=== PATIENT | female | born 2000 | race Caucasian/White ===

== ENCOUNTER 2021-04-29 02:10 | Inpatient (IN) | payer SELFPAY ==
[2021-04-29 03:09] LABS: RBC,Urine < 1.0 /HPF (0.0-6.0); WBC,Urine < 1.0 /HPF (0.0-6.0)
[2021-04-29 03:10] LABS: Color,Urine Colorless (Yellow)
[2021-04-29 03:11] LABS: PH,Urine 6.5 (5.0-7.0); Protein,Urine <15 mg/dL mg/dL (Negative); Urobilinogen,Urine < 2.0 mg/dL (<2.0)
--- NOTE | 2021-04-29 07:55 | Ultrasound Report ---
ULTRASOUND OBSTETRIC LIMITED ULTRASOUND BIOPHYSICAL PROFILE INDICATION / CLINICAL INFORMATION: BPP FABIAN EFW. Clinical Gestational Age (GA): 39.6 weeks.days COMPARISON: None available. FINDINGS: BREATHING MOVEMENT = 2 GROSS BODY MOVEMENT = 2 TONE = 2 QUALITATIVE AMNIOTIC FLUID VOLUME = 2 TOTAL BIOPHYSICAL SCORE = 8/8 HEART RATE (beats per minute): 131 AMNIOTIC FLUID INDEX (cm) = 10.6 (normal = 7-24 cm) PRESENTATION: Cephalic. ADDITIONAL FINDINGS: The estimated sonographic gestational age is 39 weeks 5 days with an EDC of 04/08 06/28. The estimated weight is 4058 +/- 601 g IMPRESSION: 1. Biophysical Score = 8/8 2. FABIAN 10.6 cm. 3. EFW 4058 +/- 601 g Signer Name: Michael Celis MD Signed: 04/29/2021 7:50 AM Workstation Name: [id number]
--- NOTE | 2021-04-29 07:55 | Ultrasound Report ---
ULTRASOUND OBSTETRIC LIMITED ULTRASOUND BIOPHYSICAL PROFILE INDICATION / CLINICAL INFORMATION: BPP AFBIAN EFW. Clinical Gestational Age (GA): 39.6 weeks.days COMPARISON: None available. FINDINGS: BREATHING MOVEMENT = 2 GROSS BODY MOVEMENT = 2 TONE = 2 QUALITATIVE AMNIOTIC FLUID VOLUME = 2 TOTAL BIOPHYSICAL SCORE = 8/8 HEART RATE (beats per minute): 131 AMNIOTIC FLUID INDEX (cm) = 10.6 (normal = 7-24 cm) PRESENTATION: Cephalic. ADDITIONAL FINDINGS: The estimated sonographic gestational age is 39 weeks 5 days with an EDC of 04/08 06/28. The estimated weight is 4058 +/- 601 g IMPRESSION: 1. Biophysical Score = 8/8 2. FABIAN 10.6 cm. 3. EFW 4058 +/- 601 g Signer Name: Michael Celis MD Signed: 04/29/2021 7:50 AM Workstation Name: [id number]
[2021-04-29] MEDS ORDERED: LACTATED RINGERS 1,000 ML ONE (10:31)
[2021-04-29] MEDS ORDERED: LACTATED RINGERS 1,000 ML IV SCH (11:30)
[2021-04-29 11:45] LABS: Basophils % (Auto) 0.2 % (0.0-1.8); Eosinophils # (Auto) 0.1 K/mm3 (0.0-0.4); Eosinophils % (Auto) 0.8 % (0.0-4.3); Hematocrit 40.5 % (30.3-42.9); Hemoglobin 13.6 gm/dl (10.1-14.3); Lymphocytes # (Auto) 1.7 K/mm3 (1.2-5.4); Lymphocytes % (Auto) 24.5 % (13.4-35.0); Mean Corpuscular HGB Conc 34 % (30-34); Mean Corpuscular Volume 92 fl (79-97); Monocytes # (Auto) 0.7 K/mm3 (0.0-0.8); Monocytes % (Auto) 9.3 % (0.0-7.3); Platelet Count 158 K/mm3 (140-440); Red Cell Distribution Width 13.6 % (13.2-15.2)
--- NOTE | 2021-04-29 11:53 | History and Physical Report ---
History of Present Illness Date of examination: 04/29/21 Date of admission: 04/29/2021 Chief complaint: Labor Pains History of present illness: Transferred into care at [facility] at 26 1/7 Weeks from [place], [place]. course has uncomplicated. Past History Past Medical History: no pertinent history Past Surgical History: cholecystectomy (2019) Family/Genetic History: none Social history: no significant social history - Obstetrical History Expected Date of Delivery: 04/30/21 Actual Gestation: 39 Week(s) 6 Day(s) : 2 Para: 1 Hx # Term Pregnancies: 1 #1 year: Birthweight: 2.8 kg Method of Delivery: Vaginal Gestational age at delivery: 38 Complications: other (Stillborn with Gastrochisis) Medications and Allergies Allergies Allergy/AdvReac Type Severity Reaction Status Date / Time No Known Allergies Allergy Unverified 04/29/21 02:51 Home Medications Medication Instructions Recorded Confirmed Last Taken Type No Known Home Medications [No 04/29/21 04/29/21 Unknown History Reported Home Medications] Active Meds: Active Medications Butorphanol Tartrate (Butorphanol 2 Mg/1 Ml Inj) 2 mg IV Q2H PRN PRN Reason: Pain , Severe (7-10) Carboprost Tromethamine (Carboprost Tromethamine 250 Mcg/1 Ml Inj) 250 mcg IM ONCE PRN PRN Reason: Uterine Bleeding Ephedrine Sulfate (Ephedrine Sulfate 50 Mg/1 Ml Inj) 10 mg IV Q2M PRN PRN Reason: Hypotension Oxytocin/Sodium Chloride (Pitocin/Ns 30 Unit/500ml) 30 units in 500 mls @ 4 mls/hr IV TITR BETTIE; Protocol Lactated Ringer's (Lactated Ringers) 1,000 mls @ 125 mls/hr IV DIRECT BETTIE Oxytocin/Sodium Chloride (Pitocin/Ns 30 Unit/500ml) 30 units in 500 mls @ 40 mls/hr IV TITR BETTIE; Protocol Lidocaine (Lidocaine (2%) 20 Mg/1 Ml Vial 20 Ml Mdv) 20 ml INFILTRATI ONCE@1200 BETTIE Stop: 04/30/21 11:59 Loperamide HCl (Loperamide 2 Mg Cap) 2 mg PO ONCE PRN PRN Reason: give with Hemabate Methylergonovine Maleate (Methylergonovine Maleate 0.2 Mg/Ml Vial) 0.2 mg IM ONCE PRN PRN Reason: Uterine Bleeding Mineral Oil (Mineral Oil 30 Ml Oral Liqd) 30 ml PO QHS PRN PRN Reason: Constipation Misoprostol (Misoprostol 200 Mcg Tab) [address] ONCE PRN PRN Reason: Uterine Bleeding Naloxone HCl (Naloxone 0.4 Mg/1 Ml Inj) 0.1 mg IV Q2MIN PRN PRN Reason: Res Rate </= 8 or 02 SAT < 92% Ondansetron HCl (Ondansetron 4 Mg/2 Ml Inj) 4 mg IV Q8H PRN PRN Reason: Nausea And Vomiting Oxytocin (Oxytocin 10 Unit/1 Ml Inj) 10 unit IM ONCE PRN PRN Reason: Uterine Bleeding Terbutaline Sulfate (Terbutaline 1 Mg/1 Ml Inj) 0.25 mg SUB-Q ONCE PRN PRN Reason: Hyperstimulation/Hypertonicity Review of Systems All systems: negative - Vital Signs Vital signs: Vital Signs Pulse Pulse Ox 75 98 04/29/21 02:32 04/29/21 02:32 Temp Pulse Resp BP Pulse Ox 98.6 F 80 16 113/56 97 04/29/21 10:56 04/29/21 11:37 04/29/21 02:47 04/29/21 02:47 04/29/21 11:37 - Physical Exam Breasts: Positive: normal Cardiovascular: Regular rate Lungs: Positive: Clear to auscultation, Normal air movement Abdomen: Positive: normal appearance, soft, normal bowel sounds Genitourinary (Female): Positive: normal external genitalia, normal perenium Vagina: Positive: normal moisture Uterus: Positive: enlarged Anus/Rectum: Positive: normal perianal skin Extremities: Positive: normal - Obstetrical FHR: category 1 Uterine Contraction Monitor Mode: External Cervical Dilatation: 6 (large amount of clear fluid upon AROM at 1123) Cervical Effacement Percentage: 70 station: -2 Uterine Contraction Pattern: Irregular Uterine Tone Measurement Phase: Resting Uterine Contraction Intensity: Moderate Results All other labs normal. Assessment and Plan A: IUP @ 39 6/7 Weeks Category I Tracing Active Labor GBS Negative P: Admit to L&D Per Routine Orders Pitocin Augmentation AROM
[2021-04-29] MEDS ORDERED: CARBOPROST TROMETHAMINE 250 MCG/1 ML INJ IM PRN (12:00)
[2021-04-29] MEDS ORDERED: ePHEDrine SULFATE 50 MG/1 ML INJ IV PRN (12:00)
[2021-04-29] MEDS ORDERED: MINERAL OIL 30 ML ORAL LIQD PO PRN (12:00)
[2021-04-29] MEDS ORDERED: BUTORPHANOL 2 MG/1 ML INJ IV PRN (12:00)
[2021-04-29] MEDS ORDERED: OXYTOCIN DRIP 30 UNITS/500 ML BAG IV SCH ×2 (12:00)
[2021-04-29] MEDS ORDERED: ONDANSETRON 4 MG/2 ML INJ IV PRN (12:00)
[2021-04-29] MEDS ORDERED: LIDOCAINE (2%) 20 MG/1 ML VIAL 20 ML MDV INFILTRATI SCH (12:00)
[2021-04-29] MEDS ORDERED: NALOXONE 0.4 MG/1 ML INJ IV PRN (12:00)
[2021-04-29] MEDS ORDERED: TERBUTALINE 1 MG/1 ML INJ SUB-Q PRN (12:00)
[2021-04-29] MEDS ORDERED: LOPERAMIDE 2 MG CAP PO PRN (12:00)
[2021-04-29] MEDS ORDERED: miSOPROStol 200 MCG TAB PR PRN (12:00)
[2021-04-29] MEDS ORDERED: METHYLERGONOVINE MALEATE 0.2 MG/ML VIAL IM PRN (12:00)
[2021-04-29] MEDS ORDERED: OXYTOCIN 10 UNIT/1 ML INJ IM PRN (12:00)
[2021-04-29] MEDS ORDERED: HYDROCORTISONE 25 MG RECTAL SUPP PR PRN (16:37)
[2021-04-29] MEDS ORDERED: LANOLIN/ZINC/DIMETHICONE (LANSINOH) 7 GM TP PRN (16:37)
[2021-04-29] MEDS ORDERED: diphenhydrAMINE 25 MG CAP PO PRN (16:37)
[2021-04-29] MEDS ORDERED: HYDROcodone/ACETAMINOPHEN 5-325 MG TAB PO PRN (16:37)
[2021-04-29] MEDS ORDERED: WITCH HAZEL/ GLYCERIN PAD TP PRN (16:37)
--- NOTE | 2021-04-29 16:45 | Procedure Note ---
OB Delivery Note - Delivery Date of Delivery: 04/29/21 (1613) Surgeon: KASSIDY CREWS Estimated blood loss: 200cc - Vaginal Delivery presentation: vertex Delivery position: OA Intrapartum events: none Delivery induction: none Delivery augmentation: rupture of membranes, pitocin Delivery monitor: external FHT, internal uterine Route of delivery: Delivery placenta: spontaneous Delivery cord: 3 umbilical vessels Episiotomy: none Delivery laceration: 1st degree Delivery repair: vicryl Anesthesia: local Delivery comments: of a live 9'2 male infant over a 1st degree vaginal laceration under IV Pain Control with Apgars of 9 and 9 at 1613 on 04/29/2021. Infant directly to maternal abd/chest, skin to skin contact. Spontaneous delivery of placenta complete and intact with Ball side presenting at 1619. Fundus is firm and midline located 5 below the U. Lochia is scant. Vaginal laceration repaired with 2-0 Vicryl on a SH under local 2% Lidociane. Delayed cord clamping and cutting; Cord cut by the Father of the Baby. Cord blood collected; Placenta discarded. - Infant A at 1 minute: 9 at 5 minutes: 9 Infant Gender: Male (9'2)
[2021-04-29] MEDS ORDERED: LIDOCAINE MPF (2%) 20 MG/1 ML VIAL 5 ML ONE (17:25)
[2021-04-29] MEDS: IBUPROFEN 800 MG TAB PO SCH (22:33)
[2021-04-30] MEDS ORDERED: LACTATED RINGERS 1,000 ML ONE (00:04)
[2021-04-30] MEDS ORDERED: LACTATED RINGERS 1000 ML IV SOLN IV SCH (02:45)
[2021-04-30 05:21] LABS: Hematocrit 37.8 % (30.3-42.9); Hemoglobin 13.1 gm/dl (10.1-14.3)
[2021-04-30] MEDS ORDERED: PRENATAL VIT27-FE FUMARATE-FOLIC ACID VIT TAB PO SCH (10:00)
[2021-04-30] MEDS: IBUPROFEN 800 MG TAB PO SCH ×2 (10:52→17:03)
--- NOTE | 2021-04-30 11:42 | Progress Note ---
Assessment and Plan A: PP Day #1 Stable P: Follow Routine orders D/C home today per patient request RTO in 6 Weeks Subjective - Subjective Date of service: 04/30/21 Interval history: Transferred into care at [facility] at 26 1/7 Weeks from [place], [place]. course has uncomplicated. Patient reports: appetite normal, voiding normally, pain well controlled, flatus, ambulating normally : doing well, bottle feeding (and ) Objective - Vital Signs Latest vital signs: Vital Signs Temp Pulse Resp BP BP Pulse Ox Pulse Ox 04/30/21 08:10 98.1 F 80 18 101/54 95 04/30/21 05:18 18 04/29/21 22:33 18 04/29/21 19:41 95 04/29/21 18:25 95 04/29/21 18:24 98.7 F 86 108/58 95 04/29/21 17:58 98.2 F 04/29/21 17:52 151 H 91 04/29/21 17:51 86 101/59 04/29/21 17:49 84 99 04/29/21 17:44 87 96 04/29/21 17:39 94 H 96 04/29/21 17:34 90 97 04/29/21 17:29 94 H 97 04/29/21 17:24 100 H 96 04/29/21 17:19 97 H 105/54 97 04/29/21 17:14 91 H 96 04/29/21 17:09 96 H 96 04/29/21 17:05 101 H 111/55 04/29/21 17:04 102 H 96 04/29/21 16:59 93 H 96 04/29/21 16:54 94 H 96 04/29/21 16:49 93 H 122/58 97 04/29/21 16:44 98 H 96 04/29/21 16:39 107 H 97 04/29/21 16:34 97 H 131/66 95 04/29/21 16:27 106 H 98 04/29/21 16:22 105 H 97 04/29/21 16:17 113 H 98 04/29/21 16:12 120 H 99 04/29/21 16:07 118 H 100 04/29/21 16:03 102 H 136/66 04/29/21 16:02 92 H 98 04/29/21 15:57 90 96 04/29/21 15:52 95 H 94 04/29/21 15:47 98 H 97 04/29/21 15:45 91 H 94 04/29/21 15:42 93 H 96 04/29/21 15:40 18 04/29/21 15:37 91 H 98 04/29/21 15:34 99.1 F 04/29/21 15:32 87 97 04/29/21 15:27 91 H 98 04/29/21 15:22 89 98 04/29/21 15:17 82 98 04/29/21 15:12 90 95 04/29/21 15:07 89 98 04/29/21 15:03 75 129/60 04/29/21 15:02 89 98 04/29/21 14:57 97 H 97 04/29/21 14:54 97 04/29/21 14:52 83 97 04/29/21 14:47 83 97 04/29/21 14:42 103 H 96 04/29/21 14:37 90 96 04/29/21 14:32 89 98 04/29/21 14:27 81 97 04/29/21 14:22 98.2 F 97 H 98 04/29/21 14:17 102 H 98 04/29/21 14:12 91 H 98 04/29/21 14:07 83 98 04/29/21 14:03 83 145/63 04/29/21 14:02 86 95 04/29/21 13:57 84 97 04/29/21 13:52 99 H 97 04/29/21 13:47 89 96 04/29/21 13:42 75 97 04/29/21 13:37 88 97 04/29/21 13:32 75 97 04/29/21 13:27 84 98 04/29/21 13:22 86 97 04/29/21 13:17 93 H 98 04/29/21 13:12 84 98 04/29/21 13:07 100 H 98 04/29/21 13:03 90 155/67 04/29/21 13:02 92 H 97 04/29/21 12:57 89 98 04/29/21 12:52 82 97 04/29/21 12:47 84 98 04/29/21 12:46 77 94 04/29/21 12:42 88 96 04/29/21 12:37 78 97 04/29/21 12:32 86 97 04/29/21 12:27 92 H 96 04/29/21 12:22 93 H 96 04/29/21 12:17 88 97 04/29/21 12:12 95 H 98 04/29/21 12:07 88 98 04/29/21 12:03 80 131/59 04/29/21 12:02 79 98 04/29/21 11:57 82 98 04/29/21 11:52 87 98 04/29/21 11:47 85 98 04/29/21 11:42 82 98 Intake and Output 04/29/21 04/30/21 04/30/21 22:59 06:59 14:59 Intake Total 16.4 240 Output Total 500 450 Balance -483.6 -450 240 Intake: IV 16.4 PITOCin/NS 30 UNIT/500ML 16.4 30 units In 500 ml @ 4 mls/hr IV TITR BETTIE Rx#: [id number] Oral 240 Output: Urine 500 450 Void 500 450 Other: Total, Intake Amount 240 Total, Output Amount 500 450 # Voids Void 1 1 Estimated Blood Loss 200 - Exam Breasts: Present: normal Cardiovascular: Present: Regular rate Lungs: Present: Clear to auscultation, Normal air movement Abdomen: Present: normal appearance, soft, normal bowel sounds Uterus: Present: normal, firm, fundal height below umbilicus Extremities: Present: normal - Labs Labs: Abnormal lab results 04/29/21 Range/Units 10:15 [place] % (Auto) 9.3 H (0.0-7.3) %
--- NOTE | 2021-04-30 11:43 | Discharge Summary ---
Providers - Providers Date of Admission: 04/29/21 16:37 Date of discharge: 04/30/21 Attending physician: YUDITH GRANT Primary care physician: YUDITH GRANT Hospitalization Reason for admission: active labor Delivery: Episiotomy: none Laceration: 1st degree Other procedures: none complications: none Discharge diagnosis: IUP at term delivered baby: male Condition at discharge: Good Disposition: 01 HOME / SELF CARE / HOMELESS Plan - Provider Discharge Summary Activity: routine, no sex for 6 weeks, no heavy lifting 4 weeks, no strenuous exercise Diet: routine Instructions: routine Additional instructions: [] Smoking cessation referral if applicable(refer to patient education folder for contact #) [] Refer to [facility]'s [facility] Booklet Call your doctor immediately for: * Fever > 100.5 * Heavy vaginal bleeding ( >1 pad per hour) * Severe persistent headache * Shortness of breath * Reddened, hot, painful area to leg or breast * Drainage or odor from incision. * Keep incision clean and dry at all times and follow doctor's instructions regarding bathing/showering - Follow up plan Follow up: YUDITH GRANT MD [Primary Care Provider] - 6 Weeks
[2021-04-30 21:15] VITALS: BP 110/54
== END 2021-04-30 22:15 | disposition home or self-care (01) | DRG 807 ==
LOC: TRG 02:10 → APU 02:11 → LD 12:14 → TRG 16:47 → OB 18:30
PROVIDERS: ADMIT Obstetrics & Gynecology; ATTEND Obstetrics & Gynecology
PROC: 10E0XZZ Delivery of Products of Conception, External Approach (ICD-10-PCS; principal; 2021-04-29)
PROC: 10907ZC Drainage of Amniotic Fluid, Therapeutic from Products of Conception, Via Natural or Artificial Opening (ICD-10-PCS; 2021-04-29)
PROC: 0HQ9XZZ Repair Perineum Skin, External Approach (ICD-10-PCS; 2021-04-29)
DX: O70.0 First degree perineal laceration during delivery (principal); Z37.0 Single live birth; Z3A.39 39 weeks gestation of pregnancy; Z20.822 Contact with and (suspected) exposure to COVID-19
CPT/HCPCS: 36415; 59025; 76816; 76819; 81001; 85014; 85018; 85025; 86592; 86850; 86900; 86901; 96360; 96374; G0378; J3490; J0595; J2590; J7120; U0003